=== PATIENT | female | born 1990 | race Two or more races ===

== ENCOUNTER 2024-07-16 17:23 | Emergency (ER) | payer MEDICAID, OTHER ==
[~2024-07-16] VITALS: Ht 162.6 cm; Wt 91.7 kg
[2024-07-16 19:25] LABS: Urine Bacteria FEW /hpf (None Seen); Urine Blood Negative /uL (Negative); Urine Clarity Clear (Clear); Urine Color Light-Yellow (Yellow); Urine Mucus FEW (None Seen); Urine Protein, UAD TRACE (Negative); Urine Specific Gravity 1.027 (1.001-1.035); Urine Urobilinogen Normal (Negative); Urine WBC 2 /hpf (0 - 5)
[2024-07-17] MEDS ORDERED: NITR-87 PO
[2024-07-17 00:11] VITALS: BP 132/78; PULSE 72; RESP 16; TEMP 98; O2SAT 98
== END 2024-07-17 00:10 | disposition home or self-care (01) ==
LOC: ER 17:28
DX: N39.0 Urinary tract infection, site not specified (principal); Z79.899 Other long term (current) drug therapy
CPT/HCPCS: 74176; 81001; 81025